=== PATIENT | male | born 1990 | race Caucasian/White ===

== ENCOUNTER → 2019-06-07 16:00 | Outpatient (CLI) | payer BC, SELFPAY ==
[2019-06-07 16:03] LABS: Adenovirus F 40/41, stool Not Detected (NotDetected); Astrovirus Not Detected (NotDetected); Campylobacter Not Detected (NotDetected); Clostridium Difficile A/B, PCR Not Detected (NotDetected); Cyclospora Cayetanesis Not Detected (NotDetected); Entamoeba histolytica Not Detected (NotDetected); Enteroaggregative E coli Not Detected (NotDetected); Enteropathogenic E coli Not Detected (NotDetected); Enterotoxigenic E coli Not Detected (NotDetected); Giardia lamblia Not Detected (NotDetected); Norovirus Not Detected (NotDetected); Plesimonas Shigalloides, PCR Not Detected (NotDetected); Rotavirus A Not Detected (NotDetected); Salmonella, PCR Not Detected (NotDetected); Sapovirus Not Detected (NotDetected); Shiga-like toxin E coli Not Detected (NotDetected); Shigella Enterovasive E coli Not Detected (NotDetected); Vibrio Cholerae Not Detected (NotDetected); Vibrio, PCR Not Detected (NotDetected); Yersinia Entercolitica, PCR Not Detected (NotDetected)
[2019-06-07 20:55] LABS: Cryptosporidium Detected (NotDetected)
== END ==
LOC: LAB.DROPOF 16:00 → LAB 06-08 07:23
PROVIDERS: Visit Provider Nurse Practitioner
DX: R19.7 Diarrhea, unspecified (principal); A07.2 Cryptosporidiosis
CPT/HCPCS: 87507

== ENCOUNTER 2022-03-08 12:41 | Emergency (ER) | payer BC, SELFPAY ==
[2022-03-08 13:21] VITALS: BP 129/87; PULSE 77; RESP 19; TEMP 36.9; O2SAT 98; BMI 35.9
--- NOTE | 2022-03-08 14:11 | HMH.EDUTC ---
[facility] [place] Disposition Clinical Impression: Dysuria UTI (urinary tract infection) Qualifiers: Urinary tract infection type: acute cystitis Hematuria presence: without hematuria Qualified Code(s): N30.00 - Acute cystitis without hematuria Disposition: Home, Self-Care Condition on Discharge: Good Instructions: DI for Urinary Tract Infection (UTI) Additional Instructions: Drink plenty of fluids. Take tylenol or ibuprofen for pain or fever. Take the medications as directed. Follow up with your regular doctor in 3 to 4 days to go over the culture report. GO TO THE ER FOR ANY WORSENING SYMPTOMS Prescriptions: Ondansetron [Zofran 4mg ODT] 4 mg PO Q8HP PRN #20 tab PRN Reason: Nausea Transmission Status: Received by [id number] Doxycycline Monohydrate [Doxycycline Leslie 100mg Tab] 100 mg PO Q12 10 Days #20 tab Transmission Status: Received by [id number] Referrals: Kellie Jones MD [Primary Care Provider] - Time of Disposition: 14:21 Medical Decision Making - Medical Records Medical records reviewed: No: I reviewed the patient's medical records. - Keven Inquiry Pt receiving controlled substance: No Vital Signs: 03/08/22 13:21 03/08/22 14:39 Temperature 98.5 F 98.5 F Temperature Source Oral Pulse Rate 77 Pulse Rate [Left Radial] 77 Respiratory Rate 19 19 Blood Pressure 129/87 Blood Pressure [Right Arm] 129/87 Blood Pressure Mean [Right Arm] 101 02 Sat by Pulse Oximetry 98 - Lab Data Lab results reviewed: Yes: I reviewed the patient's lab results. Lab Results 03/08/22 13:28: Urine Color Dark yellow, Urine Appearance Turbid, Urine pH 5.5, Ur Specific [place] 1.025, Urine Protein Negative, Urine Glucose (UA) Negative, Urine Ketones Negative, Urine Blood Negative, Urine Nitrate Negative, Urine Bilirubin Negative, Urine Urobilinogen 0.2, Ur Leukocyte Esterase 1+ A Orders (Tests/Meds): ORDERS Category Date Time Status Urine Culture Stat Micro 03/08/22 13:24 Received [facility] [place] HPI - General Stated complaint: Possible UTI Time Seen by Provider: 03/08/22 14:11 Mode of Arrival: Ambulatory Source of Information: Patient Limitations: No Limitations Description of Symptoms (Recalled from Triage Doc. by RN): pt here with posssible UTI. pt c/o burning with urination and discharge. pt took an at home UTI test and it was positive HEENT Symptoms (Recalled from RN notes): No Resp Symptoms (Recalled from RN notes): No Skin Symptoms (Recalled from RN notes): No MS Symptoms (Recalled from RN notes): No Functional Status (Recalled from RN notes): wnl - History of Present Illness Provider Complaint: He statse that for the past 3 days he has had dysuria and a whitish discharge after he urinates. He denies any fever or chills. - Related Data Previous Rx's Medication Instructions Recorded Doxycycline Monohydrate 100 mg PO Q12 10 Days #20 tab 03/08/22 [Doxycycline Leslie 100mg Tab] Ondansetron [Zofran 4mg ODT] 4 mg PO Q8HP PRN #20 tab 03/08/22 Allergies Allergy/AdvReac Type Severity Reaction Status Date / Time No Known Allergies Allergy Verified 03/08/22 13:24 - Worker's Comp Is this a Worker's Comp case?: No [facility] History - Hepatitis A Screen Attestation statement:: This patient has been screened for Hepatitis A risk factors. I have reviewed the patient's past medical history: Yes Laterality Cases: Bilateral: Tonsillectomy - Social History Smoking Status: Never smoker Alcohol Intake: current Alcohol Intake Frequency:: holidays/special occasions only Substance Use Type: denies use Occupational Status: employed Housing: house Household Members: family Family Hx:: Cancer, Diabetes ROS Obtained: Yes All systems reviewed & no additional complaints - Constitutional Constitutional: Denies chills, Denies fever(s) - Eyes Eyes: Denies eye discharge, Denies itchy eyes - Gastrointestinal Gastrointestingal: Denies: nausea, vomit
[2022-03-08 14:39] VITALS: BP 129/87; PULSE 77; RESP 19; TEMP 36.9
[2022-03-08 16:26] LABS: Apearance,Urine Turbid (Clear); Bilirubin,Urine Negative (Negative); Blood, Urine Negative (Negative); Color,Urine Dark Yellow (Yellow); Glucose,Urine (UA) Negative (Negative); Ketones,Urine Negative (Negative); PH,Urine 5.5 (5.0-8.5); Protein,Urine Negative (Negative); Specific Gravity, Urine 1.025 (1.005-1.030); UTC Leukocyte Esterase,Urine 1+ (Negative); Urobilinogen,Urine 0.2 EU/dl (0.2)
[2022-03-08 16:27] LABS: UTC Nitrate,Urine Negative (Negative)
[2022-03-10 22:38] LABS: Neisseria gonorrhoeae, NAA Positive (Negative)
== END 2022-03-08 14:40 | disposition home or self-care (01) ==
PROVIDERS: Emergency Provider Nurse Practitioner Family; PCP Family Medicine
DX: N30.00 Acute cystitis without hematuria
CPT/HCPCS: 81003; 87086; 87491; 87591; 99212; G0463

== ENCOUNTER 2022-05-12 13:47 | Emergency (ER) | payer BC, SELFPAY ==
[2022-05-12 13:48] VITALS: BP 159/92; PULSE 94; RESP 18; TEMP 36.9; O2SAT 97; BMI 36.0
--- NOTE | 2022-05-12 14:02 | HMH.EDABDPAI ---
ED Disposition Clinical Impression: Lower abdominal pain Disposition: Home, Self-Care Condition on Discharge: Good Instructions: Acute Abdominal Pain Additional Instructions: return to the ER for worse or any concerns Prescriptions: Dicyclomine HCl [Bentyl 10mg capsule] 10 mg PO TID PRN #15 cap PRN Reason: Cramping Transmission Status: Pending to [id number] Referrals: Kellie Jones MD [Primary Care Provider] - - Critical Care Critical Care Time: No Attestation: On 05/12/22, the high probability of a clinically significant, sudden or life threatening deterioration of the following system(s) required my full and direct attention, intervention and personal management. The time I documented below is in addition to time spent performing reported procedures but includes the following listed in this critical care notation. Medical Decision Making - Medical Records Medical records reviewed: Yes: I reviewed the patient's medical records. - Keven Inquiry Pt receiving controlled substance: No Vital Signs: 05/12/22 13:48 Temperature 98.5 F Temperature Source Oral Pulse Rate [Left Radial] 94 H Respiratory Rate 18 Blood Pressure [Right Arm] 159/92 H Blood Pressure Mean [Right Arm] 114 Blood Pressure Source [Right Arm] Automatic Cuff Blood Pressure Position [Right Arm] Sitting 02 Sat by Pulse Oximetry 97 Oxygen Delivery Method Room Air - Lab Data Lab Results 05/12/22 14:10: WBC 6.8, RBC 5.33, Hgb 15.7, Hct 46.8, MCV 87.8, MCH 29.5, MCHC 33.6, RDW 13.4, Plt Count 306, MPV 7.4, Neut % (Auto) 66.0, Lymph % (Auto) 26.0, Williamson % (Auto) 6.2, Eos % (Auto) 1.2, Baso % (Auto) 0.4, Neut # (Auto) 4.5, Lymph # (Auto) 1.8, Williamson # (Auto) 0.4, Eos # (Auto) 0.1, Baso # (Auto) 0.0 05/12/22 14:10: Sodium 140, Potassium 4.1, Chloride 107, Carbon Dioxide 26, Anion Gap 11.1, BUN 9, Creatinine 0.90, Estimated Creat Clear 188, Estimated GFR 99, Est GFR ( Amer) 120, Glucose 99, Calcium 9.1, Total Bilirubin < 0.1 L, AST 38, ALT 73, Alkaline Phosphatase 103, Total Protein 6.8, Albumin 4.0, Globulin 2.8, Albumin/Globulin Ratio 1.4 Result diagrams: 05/12/22 14:10 05/12/22 14:10 Orders (Tests/Meds): ED MEDICATIONS Discontinued Medications Generic Name Dose Route Start Last Admin Trade Name Giacomo PRN Reason Stop Dose Admin Acetaminophen 1,000 mg 05/12/22 14:05 05/12/22 14:14 Acetaminophen 500mg Tab PO 05/12/22 14:06 1,000 mg ONCE ONE Administration Dicyclomine HCl 20 mg 05/12/22 14:05 05/12/22 14:14 Dicyclomine 10mg Capsule PO 05/12/22 14:06 20 mg ONCE ONE Administration - Reevaluation(s) Time: 14:34 (reeval, says he is good now, appears well, agreed to return for worse) Abdominal Pain HPI - General Stated Complaint: abd pains Time Seen by Provider: 05/12/22 14:02 - History of Present Illness HPI narrative: stabbing periumbilical abd pain few hrs, minimal now, no assoc symptoms Onset (ago): hour(s) Consistency: constant Location: periumbilical Severity: moderate Quality: stabbing Radiation: none Relieving factors: nothing Exacerbating factors: nothing Associated symptoms: denies other symptoms - Related Data Previous Rx's Medication Instructions Recorded Doxycycline Monohydrate 100 mg PO Q12 10 Days #20 tab 03/08/22 [Doxycycline Williamson 100mg Tab] Ondansetron [Zofran 4mg ODT] 4 mg PO Q8HP PRN #20 tab 03/08/22 Dicyclomine HCl [Bentyl 10mg 10 mg PO TID PRN #15 cap 05/12/22 capsule] Allergies Allergy/AdvReac Type Severity Reaction Status Date / Time No Known Allergies Allergy Verified 05/04/22 15:43 [facility] History - Hepatitis A Screen Attestation statement:: This patient has been screened for Hepatitis A risk factors. Comment: patient wishes vasectomy 05/08 Laterality Cases: Bilateral: Tonsillectomy Other Surgeries: Yes: No Previous Surgery Amputation: No Fractures: No - Social History Smoking Status: Never smoker Radhao
[2022-05-12 14:20] LABS: Basophils % 0.4 % (0.1-2.0); Eosinophils # 0.1 K/mm3 (0.0-0.4); Eosinophils % 1.2 % (0.1-12.0); Hematocrit 46.8 % (42.0-52.0); Hemoglobin 15.7 g/dL (14.1-18.0); Lymphocytes # 1.8 K/mm3 (0.7-4.5); Mean Corpuscular HGB Conc 33.6 g/dL (31.8-35.4); Mean Corpuscular Hemoglobin 29.5 pg (27.0-31.2); Mean Corpuscular Volume 87.8 fl (80-94); Mean Platelet Volume 7.4 fl (7.4-10.4); Monocytes # 0.4 K/mm3 (0.1-1.0); Monocytes % 6.2 % (1.7-9.3); Neutrophils # 4.5 K/mm3 (1.8-7.8); Platelet Count 306 K/mm3 (142-424); Red Blood Count 5.33 M/mm3 (4.60-6.20); Red Cell Distribution Width 13.4 % (11.5-17.5); White Blood Count 6.8 K/mm3 (4.8-10.8)
[2022-05-12 14:30] LABS: Alanine Aminotransferase 73 U/L (12-78); Albumin/Globulin Ratio 1.4 (1.1-1.8); Alkaline Phosphatase 103 U/L (38-126); Anion Gap 11.1 mEq/L (5-15); Aspartate Amino Transferase 38 U/L (17-59); Blood Urea Nitrogen 9 mg/dl (9-20); Calcium 9.1 mg/dl (8.4-10.2); Carbon Dioxide 26 mmol/L (22.0-30.0); Chloride 107 mmol/L (98-107); Creatinine Clearance Estimated 188 mL/min (50-200); Estimated Glomerular Filt Rate 99 ml/min (>60); GFR (African American) 120 ML/MIN (>60); Globulin 2.8 g/dL (1.3-3.2); Glucose 99 mg/dl (74-100); Potassium 4.1 mmoL/L (3.5-5.1); Sodium 140 mmol/L (136-145); Total Protein,Serum 6.8 g/dl (6.3-8.2)
[2022-05-12 14:33] LABS: Bilirubin,Total < 0.1 mg/dl (0.2-1.3)
--- NOTE | 2022-05-12 14:33 | PC.NURSE ---
ED MD AT BEDSIDE TO EVALUATE PT
[2022-05-12 14:40] VITALS: BP 113/77; PULSE 79; RESP 17; TEMP 36.9; O2SAT 99
== END 2022-05-12 14:43 | disposition home or self-care (01) ==
PROVIDERS: Emergency Provider Emergency Medicine; PCP Family Medicine
DX: M54.50 Low back pain, unspecified (principal)
CPT/HCPCS: 80053; 85025; 99283

== ENCOUNTER 2022-08-16 14:51 | Emergency (ER) | payer BC, SELFPAY ==
[2022-08-16 14:52] VITALS: BP 120/81; PULSE 159; RESP 18; TEMP 37.3; O2SAT 96; BMI 35.4
--- NOTE | 2022-08-16 15:15 | ECG_ITS ---
APPROVED REPORT Exam: Resting ECG HR:148 bpm ECG Measurements Heart Rate 148 AXES FL 137 P 51 QRSd 81 QRS 14 QT 321 T 73 QTc 406 Conclusion SINUS TACHYCARDIA, POSSIBLE ATRIAL FLUTTER SEPTAL MYOCARDIAL INFARCTION , OF INDETERMINATE AGE [40+ ms Q WAVE IN V1/V2] ABNORMAL ECG UNCONFIRMED REPORT Electronically signed by : Tyree Robins MD 08/16/2022 21:17:54
--- NOTE | 2022-08-16 15:27 | HMH.EDGENADL ---
Discharge Plan Disposition Patient Disposition: Home, Self-Care Condition: Fair Prescriptions Prescriptions: New ondansetron 4 mg tablet,disintegrating 4 mg PO Q8H PRN (Reason: nausea and vomiting) Qty: 10 0RF No Action dicyclomine 10 MG capsule 10 mg PO TID PRN (Reason: Cramping) Qty: 15 0RF doxycycline monohydrate 100 MG tablet 100 mg PO Q12 10 Days Qty: 20 0RF ondansetron 4 MG tablet,disintegrating 4 mg PO Q8HP PRN (Reason: Nausea) Qty: 20 0RF Referrals Follow up/Referrals: Kellie Jones MD [Primary Care Provider] - See instructions Activity Restrictions/Add. Instructions Additional Instructions/Restrictions: Continue Tylenol or ibuprofen for fever. Phenergan take-home pack, then Zofran as needed for nausea and vomiting. Additional instructions for VOMITING/DIARRHEA: See your physician as soon as possible for further evaluation. Drink plenty of fluids. Return immediately if severe abdominal pain, uncontrollable vomiting, shortness of breath, fever, bloody diarrhea, vomiting of blood or abdominal distention. Clinical Impressions Clinical Impression: Gastroenteritis, Acute dehydration Instructions Patient Instructions: DI for Dehydration -- Adult, DI for Viral Gastroenteritis -- Adult Discharge ED Provider: Alexandro Macario General Adult HPI General Chief complaint: Fever Stated complaint: fever, diarrhea, sob Time Seen by Provider: 08/16/22 15:15 History of Present Illness HPI narrative: Patient states that he has been sick since with fever, watery diarrhea and vomiting. Denies abdominal pain. No blood noted in diarrhea. Some lightheadedness, but no syncope. He took 3 ibuprofen and 2 Excedrin before coming to the emergency department for fever. No recent travel, antibiotics, or exposures known. Related Data Previous Rx's Medication Instructions Recorded doxycycline monohydrate 100 mg 100 mg PO Q12 10 days #20 tabs 03/08/22 tablet ondansetron 4 mg disintegrating 4 mg PO Q8HP PRN Nausea #20 tabs 03/08/22 tablet dicyclomine 10 mg capsule 10 mg PO TID PRN Cramping #15 caps 05/12/22 ondansetron 4 mg disintegrating 4 mg PO Q8H PRN nausea and 08/16/22 tablet vomiting #10 tabs Allergies Allergy/AdvReac Type Severity Reaction Status Date / Time No Known Allergies Allergy Verified 05/04/22 15:43 PFSH PFSH Social History Smoking Status: Never smoker alcohol intake: current substance use type: denies use current occupational status: employed Travel in the last 8 weeks: None household members: family housing: house ROS Obtained: Yes Systems reviewed as appropriate & no additional complaints except as documented Constitutional Constitutional: Reports fever(s), Reports headache(s) (No headache currently) and Denies weakness ENT Ears, Nose, Mouth, and Throat: Reports headache(s) (No headache currently), Denies nasal discharge and Denies sore throat Cardiovascular Cardiovascular: Denies chest pain Respiratory Respiratory: Denies shortness of breath and Denies cough Gastrointestinal Gastrointestingal: Reports diarrhea, nausea and vomiting; Denies abdominal pain or constipation Genitourinary Male Genitourinary: Denies difficulty urinating and Denies flank pain Musculoskeletal Musculoskeletal: Denies numbness Neurologic Neurologic: Reports headache(s) (No headache currently), Denies numbness and Denies weakness Physical Exam General General appearance: alert Comment: Tachycardic, diaphoretic. Head Head exam: atraumatic and normocephalic Eye Eye exam: Present normal appearance and EOMI ENT ENT exam: Present mucous membranes dry Neck Neck exam: Present normal inspection and trachea midline Chest Chest inspection: Present normal inspection and symmetric chest wall rise Respiratory Respiratory exam: Present normal lung sounds bilaterally; Absent respiratory distress Cardiovascular Cardiovascular exam: Present normal rhythm, tachycard
[2022-08-16 15:31] VITALS: BP 120/75; PULSE 128; RESP 16; O2SAT 96
[2022-08-16 15:40] LABS: Basophils % 0.3 % (0.1-2.0); Eosinophils # 0.1 K/mm3 (0.0-0.4); Eosinophils % 0.9 % (0.1-12.0); Hematocrit 45.9 % (42.0-52.0); Hemoglobin 15.4 g/dL (14.1-18.0); Lymphocytes # 0.4 K/mm3 (0.7-4.5); Lymphocytes % 6.8 % (10-50); Mean Corpuscular HGB Conc 33.6 g/dL (31.8-35.4); Mean Corpuscular Hemoglobin 29.9 pg (27.0-31.2); Mean Corpuscular Volume 88.9 fl (80-94); Mean Platelet Volume 8.3 fl (7.4-10.4); Monocytes # 0.1 K/mm3 (0.1-1.0); Monocytes % 1.2 % (1.7-9.3); Neutrophils # 5.2 K/mm3 (1.8-7.8); Neutrophils % 90.8 % (37.0-80.0); Platelet Count 290 K/mm3 (142-424); Red Blood Count 5.17 M/mm3 (4.60-6.20); Red Cell Distribution Width 13.6 % (11.5-17.5); White Blood Count 5.7 K/mm3 (4.8-10.8)
[2022-08-16 15:41] LABS: Chloride 100 mmol/L (98-107); Potassium 3.4 mmoL/L (3.5-5.1); Sodium 135 mmol/L (136-145)
[2022-08-16 15:44] LABS: Alanine Aminotransferase 53 U/L (12-78); Albumin Level 3.8 g/dl (3.5-5.0); Albumin/Globulin Ratio 1.2 (1.1-1.8); Alkaline Phosphatase 131 U/L (38-126); Anion Gap 13.4 mEq/L (5-15); Aspartate Amino Transferase 37 U/L (17-59); Bilirubin,Total 0.9 mg/dl (0.2-1.3); Blood Urea Nitrogen 9 mg/dl (9-20); Carbon Dioxide 25 mmol/L (22.0-30.0); Creatinine Clearance Estimated 166 mL/min (50-200); Estimated Glomerular Filt Rate 88 ml/min (>60); GFR (African American) 106 ML/MIN (>60); Globulin 3.1 g/dL (1.3-3.2); Total Protein,Serum 6.9 g/dl (6.3-8.2)
[2022-08-16 15:45] LABS: Glucose 113 mg/dl (74-100); MANUAL DIFFERENTIAL MANUAL DIFFERENTIAL (MANUAL DIFF)
[2022-08-16 16:04] LABS: Lymphocytes % 7 % (10-50); Monocytes % 1 % (2-9); Neutrophils % 88 % (42-76); Platelet Estimate Normal; RBC Morphology Normal; Total Cells Counted 100
[2022-08-16 16:35] LABS: Lactic Acid 1.2 mmol/L (0.7-2.1)
[2022-08-16 16:52] VITALS: BP 106/63; PULSE 106; RESP 18; O2SAT 98
[2022-08-16 17:31] VITALS: BP 116/71; PULSE 99; RESP 20; O2SAT 99
--- NOTE | 2022-08-16 17:36 | PC.NURSE ---
Pt in bathroom at this time attempting to provide a stool sample.
--- NOTE | 2022-08-16 18:31 | PC.NURSE ---
LAB HERE DRAWING 2ND SET OF CULTURES
--- NOTE | 2022-08-16 19:20 | PC.NURSE ---
report given to janiarn
--- NOTE | 2022-08-16 19:35 | PC.NURSE ---
Pt advised he was unable to provide diarrhea sample. No other needs voiced at this time.
--- NOTE | 2022-08-16 19:40 | PC.NURSE ---
Dr. Macario at [facility]
[2022-08-16 20:11] VITALS: BP 121/82; PULSE 92; RESP 16; TEMP 37.2; O2SAT 100
== END 2022-08-16 20:14 | disposition home or self-care (01) ==
PROVIDERS: Emergency Provider Emergency Medicine; PCP Family Medicine
DX: K52.9 Noninfective gastroenteritis and colitis, unspecified (principal); E86.0 Dehydration
CPT/HCPCS: 36415; 80053; 83605; 85007; 85025; 87040; 93005; 96365; 96375; 99284; J2405

== ENCOUNTER → 2022-08-17 05:21 | Outpatient (CLI) | payer BC, SELFPAY ==
[2022-08-17 05:36] LABS: Adenovirus F 40/41, stool Not Detected (NotDetected); Astrovirus Not Detected (NotDetected); Campylobacter Not Detected (NotDetected); Clostridium Difficile A/B, PCR Not Detected (NotDetected); Cryptosporidium Not Detected (NotDetected); Cyclospora Cayetanesis Not Detected (NotDetected); Entamoeba histolytica Not Detected (NotDetected); Enteroaggregative E coli Not Detected (NotDetected); Enteropathogenic E coli Not Detected (NotDetected); Enterotoxigenic E coli Not Detected (NotDetected); Giardia lamblia Not Detected (NotDetected); Norovirus Not Detected (NotDetected); Plesimonas Shigalloides, PCR Not Detected (NotDetected); Rotavirus A Not Detected (NotDetected); Salmonella, PCR Not Detected (NotDetected); Sapovirus Not Detected (NotDetected); Shiga-like toxin E coli Not Detected (NotDetected); Shigella Enterovasive E coli Not Detected (NotDetected); Vibrio Cholerae Not Detected (NotDetected); Vibrio, PCR Not Detected (NotDetected); Yersinia Entercolitica, PCR Not Detected (NotDetected)
== END ==
PROVIDERS: PCP Family Medicine; Visit Provider Emergency Medicine
DX: R19.7 Diarrhea, unspecified (principal); R11.11 Vomiting without nausea
CPT/HCPCS: 87506

== ENCOUNTER 2022-08-17 16:07 | Emergency (ER) | payer BC, SELFPAY ==
[2022-08-17 16:50] VITALS: BP 114/68; PULSE 76; RESP 20; TEMP 37.1; O2SAT 98; BMI 35.4
--- NOTE | 2022-08-17 16:50 | EXP.UTC ---
Discharge Plan Disposition Patient Disposition: Home, Self-Care Condition: Good Prescriptions Prescriptions: No Action dicyclomine 10 MG capsule 10 mg PO TID PRN (Reason: Cramping) Qty: 15 0RF doxycycline monohydrate 100 MG tablet 100 mg PO Q12 10 Days Qty: 20 0RF ondansetron 4 MG tablet,disintegrating 4 mg PO Q8HP PRN (Reason: Nausea) Qty: 20 0RF ondansetron 4 mg tablet,disintegrating 4 mg PO Q8H PRN (Reason: nausea and vomiting) Qty: 10 0RF Referrals Follow up/Referrals: Kellie Jones MD [Primary Care Provider] - See instructions Activity Restrictions/Add. Instructions Additional Instructions/Restrictions: Drink plenty of fluids. Water and electrolyte solutions, such as pedialyte, is best. Take tylenol or ibuprofen for pain or fever. Follow up with your regular doctor. GO TO THE ER FOR ANY WORSENING SYMPTOMS Clinical Impressions Clinical Impression: Gastroenteritis, Viral syndrome Stand Alone Forms Stand Alone Forms: Work/School Release Instructions Patient Instructions: DI for Viral Gastroenteritis -- Adult, DI for Viral Syndrome Discharge ED Provider: Edison Graf [facility] General Stated complaint: vomiting, diArrhea Time Seen by Provider: 08/17/22 17:09 History of Present Illness Provider Complaint: He states that for the past 4 days he has had diarrhea, nausea. His symptoms started with chilling and body aches. He was in the er yesterday with these symptoms. He got iv fluids and lab work. He brought back a stool sample today for a diarrhea panel. He wants to have the results of this discussed with him too. He denies significant chest or sinus congestion. He has a sore throat, but states it is more scratchy than sore. Related Data Previous Rx's Medication Instructions Recorded doxycycline monohydrate 100 mg 100 mg PO Q12 10 days #20 tabs 03/08/22 tablet ondansetron 4 mg disintegrating 4 mg PO Q8HP PRN Nausea #20 tabs 03/08/22 tablet dicyclomine 10 mg capsule 10 mg PO TID PRN Cramping #15 caps 05/12/22 ondansetron 4 mg disintegrating 4 mg PO Q8H PRN nausea and 08/16/22 tablet vomiting #10 tabs Allergies Allergy/AdvReac Type Severity Reaction Status Date / Time No Known Allergies Allergy Verified 05/04/22 15:43 PFSH [facility] Medical History Depression Liver disease Surgical History History of tonsillectomy Social History Smoking Status: Never smoker alcohol intake: current substance use type: denies use current occupational status: employed Travel in the last 8 weeks: None household members: family housing: house ROS Obtained: Yes All systems reviewed & no additional complaints except as documented Constitutional Constitutional: Denies chills, Denies fever(s) and Reports poor appetite ENT Ears, Nose, Mouth, and Throat: Denies dizziness and Denies sore throat Cardiovascular Cardiovascular: Denies dyspnea Respiratory Respiratory: Denies chest congestion, Denies cough and Denies dyspnea Gastrointestinal Gastrointestingal: Reports as per HPI Genitourinary Male Genitourinary: Denies hematuria, Denies urinary frequency, Denies urinary hesitancy, Denies urinary incontinence and Denies urinary urgency Musculoskeletal Musculoskeletal: Denies arthralgias Integumentary/Breasts Skin/Breast: Denies rash Neurologic Neurologic: Denies dizziness Physical Exam General General appearance: alert and in no apparent distress Head Head exam: atraumatic and normocephalic Eye Eye exam: Present normal appearance, PERRL and EOMI ENT ENT exam: Present normal exam, normal oropharynx, mucous membranes moist, TM's normal bilaterally and normal external ear exam Neck Neck exam: Present normal inspection, full ROM and trachea midline; Absent tenderness, meningismus or lymphadenopathy Chest Chest ins
[2022-08-17 17:48] LABS: UTC Influenza A Antigen Negative (Negative); UTC Influenza B Antigen Negative (Negative)
[2022-08-17 18:06] VITALS: BP 114/68; PULSE 76; RESP 20; TEMP 37.1; O2SAT 98
[2022-08-17 18:56] LABS: Adenovirus,PCR Not Detected (NotDetected); Bordetella Pertussis Not Detected (NotDetected); Chlamydophila Pneumoniae, PCR Not Detected (NotDetected); Coronavirus 19, PCR Not Detected (NotDetected); Coronavirus 229E Not Detected (NotDetected); Coronavirus NL63 Not Detected (NotDetected); Coronavirus OC43 Not Detected (NotDetected); Coronovirus HKU1,PCR Not Detected (NotDetected); Human Metapneumovirus Not Detected (NotDetected); Influenza A, PCR Not Detected (NotDetected); Influenza AH1, 2009 Not Detected (NotDetected); Influenza AH1, PCR Not Detected (NotDetected); Influenza AH3,PCR Not Detected (NotDetected); Influenza B, PCR Not Detected (NotDetected); Mycoplasma Pneumoniae, PCR Not Detected (NotDetected); Parainfluenza 1, PCR Not Detected (NotDetected); Parainfluenza 2, PCR Not Detected (NotDetected); Parainfluenza 3, PCR Not Detected (NotDetected); Parainfluenza 4, PCR Not Detected (NotDetected); Respiratory Syncytial Virus Not Detected (NotDetected); Rhinovirus/Enterovirus Not Detected (NotDetected)
== END 2022-08-17 18:13 | disposition home or self-care (01) ==
PROVIDERS: Emergency Provider Nurse Practitioner Family; PCP Family Medicine
DX: R11.2 Nausea with vomiting, unspecified (principal); R19.7 Diarrhea, unspecified; J02.9 Acute pharyngitis, unspecified; M79.10 Myalgia, unspecified site; K76.9 Liver disease, unspecified; F32.A Depression, unspecified; Z20.822 Contact with and (suspected) exposure to COVID-19; Z79.899 Other long term (current) drug therapy
CPT/HCPCS: 87581; 87632; 87798; 87804; 99213; C9803; G0463; U0003; U0005

== ENCOUNTER 2022-08-21 11:28 | Emergency (ER) | payer BC, SELFPAY ==
[2022-08-21] VITALS (7 sets, daily range): BP systolic 121–134; BP diastolic 67–87; PULSE 70–124; RESP 18; TEMP 37.2–37.3; O2SAT 96–99; BMI 34.7
--- NOTE | 2022-08-21 11:40 | PC.NURSE ---
ED MD AT BEDSIDE FOR EVALUATION
--- NOTE | 2022-08-21 11:56 | CT_ITS ---
FINAL REPORT CLINICAL HISTORY: headache and fever FINDINGS: Axial images of the head were obtained without contrast. Coronal reformatted images were also obtained.This study was performed with techniques to keep radiation doses as low as reasonably achievable (ALARA). Individualized dose reduction techniques using automated exposure control or adjustment of mA and/or kV according to the patient's size were employed. There is no evidence of intracranial hemorrhage or mass. The ventricular size is within normal limits. There is no evidence of shift of the midline structures. No abnormal extra axial fluid collection is identified. No skull abnormality is seen on the bone window images. There is a retention cyst or polyp in the left maxillary sinus. IMPRESSION: No acute intracranial abnormality. Reviewed, Interpreted and Dictated by Jeff Magaña III, MD Transcribed by Sai Salcido Authenticated and [facility]
--- NOTE | 2022-08-21 11:58 | HMH.EDGENADL ---
Discharge Plan Disposition Patient Disposition: Home, Self-Care Prescriptions Prescriptions: No Action dicyclomine 10 MG capsule 10 mg PO TID PRN (Reason: Cramping) Qty: 15 0RF doxycycline monohydrate 100 MG tablet 100 mg PO Q12 10 Days Qty: 20 0RF ondansetron 4 MG tablet,disintegrating 4 mg PO Q8HP PRN (Reason: Nausea) Qty: 20 0RF ondansetron 4 mg tablet,disintegrating 4 mg PO Q8H PRN (Reason: nausea and vomiting) Qty: 10 0RF Referrals Follow up/Referrals: Becky Goel APRN [Primary Care Provider] - See instructions Activity Restrictions/Add. Instructions Additional Instructions/Restrictions: At this time was felt you are safe to be discharged home. If new or worsening symptoms please not hesitate to return for continued evaluation. Please follow-up with your family doctor within 5 days if symptoms persist. Clinical Impressions Clinical Impression: Acute viral syndrome Instructions Patient Instructions: DI for Diarrhea and Traveler's Diarrhea -- Adult Discharge ED Provider: Amanuel Freeman General Adult HPI General Chief complaint: Nausea/Vomiting/Diarrhea Stated complaint: Fever, physician referral Time Seen by Provider: 08/21/22 11:50 Mode of Arrival: Ambulatory Limitations: No Limitations Description of Symptoms (Recalled from ER Triage Doc. by RN): PT WITH ABOUT 8 DAY HX OF INTERMITTENT FEVER, DIARRHEA, HEADACHE, BODYACHES AND NECK PAIN History of Present Illness HPI narrative: Patient is a 31-year-old male with past medical history of fatty liver who presents emergency department for evaluation of multiple symptoms. Onset was acute, occurring since last , patient has had waxing and waning headaches, moderate to severe in intensity, holoacranial, no photophobia or phonophobia. There is episodic bilateral neck stiffness that is mild that does not limit range of motion. Patient has not take Tylenol or ibuprofen this morning and complains of no headache at this time. He presents for continued evaluation at the behest of his PCP. Per chart review patient recently had blood work drawn which is nonactionable. Stool PCR and viral respiratory panel PCR negative. Patient has had associated decreased p.o. intake. There has been episodic nonbloody diarrhea which has resolved as of a couple days ago. There is been 1 episode of nonbloody nonbilious vomiting. Diffuse myalgias. Patient denies chest pain, shortness of breath, abdominal pain. Related Data Previous Rx's Medication Instructions Recorded doxycycline monohydrate 100 mg 100 mg PO Q12 10 days #20 tabs 03/08/22 tablet ondansetron 4 mg disintegrating 4 mg PO Q8HP PRN Nausea #20 tabs 03/08/22 tablet dicyclomine 10 mg capsule 10 mg PO TID PRN Cramping #15 caps 05/12/22 ondansetron 4 mg disintegrating 4 mg PO Q8H PRN nausea and 08/16/22 tablet vomiting #10 tabs Allergies Allergy/AdvReac Type Severity Reaction Status Date / Time No Known Allergies Allergy Verified 05/04/22 15:43 PFSH PFS Medical History Depression Liver disease Surgical History History of tonsillectomy Social History Smoking Status: Never smoker alcohol intake: current substance use type: denies use current occupational status: employed Travel in the last 8 weeks: None household members: family housing: house ROS Obtained: Yes Systems reviewed as appropriate & no additional complaints except as documented Physical Exam General General appearance: alert and in no apparent distress Head Head exam: atraumatic and normocephalic Eye Eye exam: Present PERRL and EOMI ENT ENT exam: Present mucous membranes moist Neck Neck exam: Present normal inspection Chest Chest inspection: Present normal inspection and symmetric chest wall rise Respiratory Respiratory exam: Present n
--- NOTE | 2022-08-21 12:05 | PC.NURSE ---
PT TO CT
--- NOTE | 2022-08-21 12:10 | PC.NURSE ---
PT RETURNED FROM CT
--- NOTE | 2022-08-21 12:41 | PC.NURSE ---
LAB HERE BLOOD DRAW
[2022-08-21 12:54] LABS: Coronavirus 19, PCR Not Detected (NotDetected); Influenza A, PCR Not Detected (NotDetected); Influenza B, PCR Not Detected (NotDetected)
[2022-08-21 13:00] LABS: Basophils # 0.1 K/mm3 (0-0.2); Basophils % 0.5 % (0.1-2.0); Eosinophils # 0.1 K/mm3 (0.0-0.4); Eosinophils % 0.6 % (0.1-12.0); Hematocrit 39.5 % (42.0-52.0); Hemoglobin 12.6 g/dL (14.1-18.0); Lymphocytes # 1.4 K/mm3 (0.7-4.5); Lymphocytes % 9.3 % (10-50); Mean Corpuscular HGB Conc 31.8 g/dL (31.8-35.4); Mean Corpuscular Hemoglobin 29.5 pg (27.0-31.2); Mean Corpuscular Volume 92.7 fl (80-94); Mean Platelet Volume 7.9 fl (7.4-10.4); Monocytes # 0.5 K/mm3 (0.1-1.0); Monocytes % 3.5 % (1.7-9.3); Neutrophils # 12.8 K/mm3 (1.8-7.8); Neutrophils % 86.1 % (37.0-80.0); Platelet Count 423 K/mm3 (142-424); Red Blood Count 4.26 M/mm3 (4.60-6.20); Red Cell Distribution Width 13.6 % (11.5-17.5); White Blood Count 14.9 K/mm3 (4.8-10.8)
[2022-08-21 13:02] LABS: MANUAL DIFFERENTIAL MANUAL DIFFERENTIAL (MANUAL DIFF)
[2022-08-21 13:09] LABS: Alanine Aminotransferase 43 U/L (12-78); Albumin Level 3.5 g/dl (3.5-5.0); Albumin/Globulin Ratio 1.1 (1.1-1.8); Alkaline Phosphatase 132 U/L (38-126); Anion Gap 12.9 mEq/L (5-15); Aspartate Amino Transferase 32 U/L (17-59); Bilirubin,Total 0.3 mg/dl (0.2-1.3); Blood Urea Nitrogen 8 mg/dl (9-20); Calcium 8.6 mg/dl (8.4-10.2); Carbon Dioxide 28 mmol/L (22.0-30.0); Chloride 98 mmol/L (98-107); Creatine Kinase 32 U/L (55-170); Creatinine Clearance Estimated 204 mL/min (50-200); Estimated Glomerular Filt Rate 114 ml/min (>60); GFR (African American) 137 ML/MIN (>60); Globulin 3.1 g/dL (1.3-3.2); Glucose 114 mg/dl (74-100); Potassium 3.9 mmoL/L (3.5-5.1); Sodium 135 mmol/L (136-145); Total Protein,Serum 6.6 g/dl (6.3-8.2)
--- NOTE | 2022-08-21 13:29 | PC.NURSE ---
ED MD AT BEDSIDE SPEAKING WITH PT
[2022-08-21 13:49] LABS: Lymphocytes % 12 % (10-50); Monocytes % 5 % (2-9); Neutrophils % 83 % (42-76); Total Cells Counted 100
[2022-08-21 13:54] LABS: Platelet Estimate Normal; RBC Morphology Normal
--- NOTE | 2022-08-21 13:55 | PC.NURSE ---
LAB NOTIFIED TO CANCEL CRP
== END 2022-08-21 14:04 | disposition home or self-care (01) ==
PROVIDERS: Emergency Provider Emergency Medicine; PCP Nurse Practitioner Family
DX: R11.2 Nausea with vomiting, unspecified (principal); R19.7 Diarrhea, unspecified; B34.9 Viral infection, unspecified
CPT/HCPCS: 70450; 80053; 82550; 83605; 85007; 85025; 87040; 96365; 96366; 96375; 99284; C9803; J2405; U0003; U0005

== ENCOUNTER → 2022-08-31 07:43 | Outpatient (CLI) | payer BC, SELFPAY ==
--- NOTE | 2022-08-31 07:48 | CT_ITS ---
FINAL REPORT TECHNIQUE: After the administration of intravenous contrast, axial images were obtained through the abdomen and pelvis by computed tomography. This study was performed with technique to keep radiation doses as low as reasonably achievable, (ALARA). Individualized dose reduction techniques using automated exposure control or adjustment of the MA and/or KV according to the patient's size were employed. CLINICAL HISTORY: ABD PAIN,FEVER AND CHILLS x 2 months FINDINGS: Abdomen: At the left lung base is a patchy, nodular airspace opacity in the periphery of the left lower lobe seen on image 12 of series 2. Two, large confluent masses are seen in the superior right hepatic lobe with multi locular central regions measuring up to 2.6 cm in greatest dimension. Findings are best seen on images 13-23 of series 2. The spleen is unremarkable. The adrenals are normal. The pancreas is unremarkable. The kidneys enhance appropriately. The aorta is normal in caliber. There is no free fluid or adenopathy. Pelvis: The appendix is normal. The urinary bladder is unremarkable. There is no free fluid or adenopathy. IMPRESSION: Large, confluent, complex right hepatic masses which could be infectious or neoplastic. Favor abscesses although of unknown ideology. Nodular left lung base airspace opacities. Reviewed, Interpreted and Dictated by Gautam Suggs MD Transcribed by Lakeisha Santos Authenticated and [facility]
== END ==
PROVIDERS: PCP Nurse Practitioner Family; Visit Provider Nurse Practitioner Family
DX: R10.84 Generalized abdominal pain (principal); R50.9 Fever, unspecified
CPT/HCPCS: 74177; Q9967

== ENCOUNTER 2022-09-15 12:40 | Outpatient (CLI) | payer BC, SELFPAY ==
[2022-09-15 12:46] VITALS: BMI 34.0
[2022-09-15 13:08] LABS: Basophils # 0.1 K/mm3 (0-0.2); Basophils % 0.8 % (0.1-2.0); Eosinophils # 0.3 K/mm3 (0.0-0.4); Eosinophils % 3.3 % (0.1-12.0); Hematocrit 39.5 % (42.0-52.0); Hemoglobin 11.9 g/dL (14.1-18.0); Lymphocytes # 1.4 K/mm3 (0.7-4.5); Lymphocytes % 18.4 % (10-50); Mean Corpuscular HGB Conc 30.1 g/dL (31.8-35.4); Mean Corpuscular Hemoglobin 27.3 pg (27.0-31.2); Mean Corpuscular Volume 90.8 fl (80-94); Mean Platelet Volume 7.4 fl (7.4-10.4); Monocytes # 0.3 K/mm3 (0.1-1.0); Monocytes % 4.4 % (1.7-9.3); Neutrophils # 5.4 K/mm3 (1.8-7.8); Neutrophils % 73.1 % (37.0-80.0); Platelet Count 526 K/mm3 (142-424); Red Blood Count 4.35 M/mm3 (4.60-6.20); Red Cell Distribution Width 14.4 % (11.5-17.5); White Blood Count 7.4 K/mm3 (4.8-10.8)
[2022-09-15 13:11] LABS: Alanine Aminotransferase 77 U/L (12-78); Albumin Level 3.9 g/dl (3.5-5.0); Alkaline Phosphatase 127 U/L (38-126); Aspartate Amino Transferase 41 U/L (17-59); Bilirubin,Direct 0.1 mg/dl (0.0-0.4); Bilirubin,Unconjugated 0.1 mg/dL (0.0-1.1); Blood Urea Nitrogen 9 mg/dl (9-20); Creatinine Clearance Estimated 133 mL/min (50-200); Estimated Glomerular Filt Rate 71 ml/min (>60); GFR (African American) 86 ML/MIN (>60); Total Protein,Serum 7.3 g/dl (6.3-8.2)
[2022-09-15 13:16] LABS: C-Reactive Protein 10.4 mg/L (0-4)
[2022-09-15 13:19] LABS: Bilirubin,Total 0.1 mg/dl (0.2-1.3)
== END 2022-09-15 13:09 | disposition home or self-care (01) ==
LOC: INF 12:41
PROVIDERS: PCP Nurse Practitioner Family; Visit Provider Internal Medicine
DX: K75.0 Abscess of liver (principal); Z45.2 Encounter for adjustment and management of vascular access device
CPT/HCPCS: 36592; 80076; 82565; 84520; 85025; 86140

== ENCOUNTER 2022-09-22 11:54 | Outpatient (CLI) | payer BC, SELFPAY ==
[2022-09-22 11:59] VITALS: BMI 37.2
[2022-09-22 12:38] LABS: Basophils # 0.1 K/mm3 (0-0.2); Basophils % 0.9 % (0.1-2.0); Eosinophils # 0.2 K/mm3 (0.0-0.4); Eosinophils % 2.5 % (0.1-12.0); Hematocrit 38.9 % (42.0-52.0); Hemoglobin 12.3 g/dL (14.1-18.0); Lymphocytes # 1.3 K/mm3 (0.7-4.5); Lymphocytes % 20.2 % (10-50); Mean Corpuscular HGB Conc 31.7 g/dL (31.8-35.4); Mean Corpuscular Hemoglobin 28.6 pg (27.0-31.2); Mean Platelet Volume 7.4 fl (7.4-10.4); Monocytes # 0.4 K/mm3 (0.1-1.0); Monocytes % 5.6 % (1.7-9.3); Neutrophils # 4.6 K/mm3 (1.8-7.8); Neutrophils % 70.9 % (37.0-80.0); Platelet Count 380 K/mm3 (142-424); Red Blood Count 4.32 M/mm3 (4.60-6.20); Red Cell Distribution Width 15.4 % (11.5-17.5); White Blood Count 6.5 K/mm3 (4.8-10.8)
[2022-09-22 12:41] LABS: Alanine Aminotransferase 54 U/L (12-78); Albumin Level 3.8 g/dl (3.5-5.0); Alkaline Phosphatase 90 U/L (38-126); Aspartate Amino Transferase 35 U/L (17-59); Bilirubin,Unconjugated 0.1 mg/dL (0.0-1.1); Total Protein,Serum 6.7 g/dl (6.3-8.2)
[2022-09-22 12:42] LABS: Blood Urea Nitrogen 10 mg/dl (9-20); Creatinine Clearance Estimated 145 mL/min (50-200); Estimated Glomerular Filt Rate 71 ml/min (>60); GFR (African American) 86 ML/MIN (>60)
[2022-09-22 12:45] LABS: Bilirubin,Total < 0.1 mg/dl (0.2-1.3)
[2022-09-22 12:46] LABS: Bilirubin,Indirect 0.1 mg/dL (0.0-0.9)
[2022-09-22 12:47] LABS: C-Reactive Protein 4.3 mg/L (0-4)
== END 2022-09-22 12:25 | disposition home or self-care (01) ==
LOC: INF 11:56
PROVIDERS: PCP Nurse Practitioner Family; Visit Provider Internal Medicine
DX: Z45.2 Encounter for adjustment and management of vascular access device (principal); K75.0 Abscess of liver; Z51.81 Encounter for therapeutic drug level monitoring
CPT/HCPCS: 36592; 80076; 82565; 84520; 85025; 86140

== ENCOUNTER 2022-09-29 11:57 | Outpatient (CLI) | payer BC, SELFPAY ==
[2022-09-29 12:04] VITALS: BMI 34.0
[2022-09-29 12:23] LABS: Basophils % 0.6 % (0.1-2.0); Eosinophils # 0.2 K/mm3 (0.0-0.4); Eosinophils % 2.8 % (0.1-12.0); Hematocrit 41.4 % (42.0-52.0); Hemoglobin 13.1 g/dL (14.1-18.0); Lymphocytes # 1.7 K/mm3 (0.7-4.5); Lymphocytes % 23.3 % (10-50); Mean Corpuscular HGB Conc 31.6 g/dL (31.8-35.4); Mean Corpuscular Hemoglobin 28.3 pg (27.0-31.2); Mean Corpuscular Volume 89.6 fl (80-94); Mean Platelet Volume 7.6 fl (7.4-10.4); Monocytes # 0.5 K/mm3 (0.1-1.0); Monocytes % 7.3 % (1.7-9.3); Neutrophils # 4.8 K/mm3 (1.8-7.8); Platelet Count 300 K/mm3 (142-424); Red Blood Count 4.62 M/mm3 (4.60-6.20); Red Cell Distribution Width 15.6 % (11.5-17.5); White Blood Count 7.3 K/mm3 (4.8-10.8)
[2022-09-29 12:24] LABS: Creatinine Clearance Estimated 123 mL/min (50-200); Estimated Glomerular Filt Rate 65 ml/min (>60); GFR (African American) 78 ML/MIN (>60)
[2022-09-29 12:25] LABS: Alanine Aminotransferase 40 U/L (12-78); Albumin Level 4.2 g/dl (3.5-5.0); Alkaline Phosphatase 92 U/L (38-126); Aspartate Amino Transferase 29 U/L (17-59); Bilirubin,Indirect 0.2 mg/dL (0.0-0.9); Bilirubin,Total 0.2 mg/dl (0.2-1.3); Bilirubin,Unconjugated 0.2 mg/dL (0.0-1.1); Blood Urea Nitrogen 7 mg/dl (9-20)
[2022-09-29 12:31] LABS: C-Reactive Protein 3.7 mg/L (0-4)
== END 2022-09-29 12:20 | disposition home or self-care (01) ==
LOC: INF 11:58
PROVIDERS: PCP Nurse Practitioner Family; Visit Provider Internal Medicine
DX: K75.0 Abscess of liver (principal); Z45.2 Encounter for adjustment and management of vascular access device; Z51.81 Encounter for therapeutic drug level monitoring
CPT/HCPCS: 36592; 80076; 82565; 84520; 85025; 86140

== ENCOUNTER 2022-10-02 12:20 | Outpatient (CLI) | payer BC, SELFPAY ==
[2022-10-02 12:35] VITALS: BP 149/100; PULSE 85; RESP 18; O2SAT 99
== END 2022-10-02 12:35 | disposition home or self-care (01) ==
PROVIDERS: PCP Nurse Practitioner Family; Visit Provider Internal Medicine
DX: Z45.2 Encounter for adjustment and management of vascular access device (principal); Z51.81 Encounter for therapeutic drug level monitoring
CPT/HCPCS: G0463